=== PATIENT | female | born 1990 | race Caucasian/White ===

== ENCOUNTER 2023-12-10 11:06 | Emergency (ER) | payer OTHER ==
[2023-12-10 11:13] VITALS: BP 125/93; PULSE 80; RESP 18; TEMP 98; BMI 26.4
[2023-12-10] MEDS ORDERED: IBUPROFEN 400 MG TABLET (FP) PO ONE (12:15)
[2023-12-10] MEDS: IBUPROFEN 400 MG TABLET (FP) PO ONE (12:26)
== END 2023-12-10 12:26 | disposition home or self-care (01) ==
LOC: JER 11:06
DX: M75.52 Bursitis of left shoulder (principal); M25.512 Pain in left shoulder; R07.9 Chest pain, unspecified
CPT/HCPCS: 93005; 93010; 99283-25